=== PATIENT | male | born 1970 | race Hispanic/Latino ===

== ENCOUNTER 2016-11-12 17:23 | Inpatient (IN) | payer OTHER, MEDICAID ==
[~2016-11-12] VITALS: Ht 172.7 cm; Wt 91.8 kg
[~2016-11-12 17:23] MED LIST: CLIN300C4 PO; HYDR1TAB69 PO; LORA-303 PO; VIS25 PO
[2016-11-12 17:25] VITALS: BP 114/77; PULSE 99; RESP 20; O2SAT 99
[2016-11-12] MEDS ORDERED: 0.9% Sodium Chloride 1,000 ML IV ONE (18:04)
--- NOTE | 2016-11-12 18:04 | ED.REPORT ---
HPI-Extremity Problem Lower Date of Service Nov 12, 2016 ED Provider: Quin Erazo History of Present Illness: 46-year-old male here for right knee pain. States it has been hurting for months. States it has been gradually swelling and more painful for months. The erythema and drainage she noticed more recently although hard to pinpoint a time frame. If the PCP in [place] whom he saw recently but they did not look at his knee area has an infectious disease doctor in [place] as well. History of arthritis and has had his knee removed and has a spacer in his knee. As well as in his hips and shoulders. No known fever. No nausea vomiting or diarrhea. He is homeless and lives in his van. He is up here for [facility] usually gets his healthcare in the [facility]. He is nonweightbearing uses a wheelchair to get around. Nursing Notes Stated Complaint: SWOLLEN KNEE AND FOOT Chief Complaint: Extremity Trauma Nursing Notes Reviewed: Yes Allergies: Coded Allergies: codeine (Verified Allergy, Severe, GI UPSET, 11/12/16) Scheduled Clindamycin Hcl (Clindamycin Hcl) 300 Mg Capsule 300 MG PO QID Scheduled PRN Hydrocod/APAP-Expunged, Do Not Renew! (VICODIN 5/500-Expunged Drug, Do Not Renew ) 1 Each Tablet 1 EACH PO TID PRN PRN Lorazepam-Expunged Drug, Do Not Renew! (Lorazepam-Expunged Drug, Do Not Renew!) 1 Mg Tablet 1 MG PO TID PRN PRN hydrOXYzine Tessie-Expunged Drug, Do Not Renew! (Vistaril-Expunged Drug, Do Not Renew!) 25 Mg Capsule 25 MG PO Q6 PRN PRN General Time Seen by MD: 17:47 Chief Complaint Knee injury left Hx Obtained From: Patient, Other family... Arrived By: Wheelchair Onset Occurred: Onset unknown Symptom Duration: Constant Location: : Knee left Severity: Current: Severe Severity: Maximum: Severe Pertinent Negative: Pt denies other symptoms Exacerbated by: Range of motion, Movement Relieved by: Rest Similar Sx Previous: Yes Past Medical History Past Medical History Notes: Last admitted to [facility] in 2011 infected right hip, MSSA positive Patient reports currently followed by orthopedist Dr. Sandoval in [place], as well as an ID doc ("Dr. Caruso" at a hospital in [place], ? 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, (status post multiple joint replacements and surgeries) h/o MRSA septic joint 3h/o hepatitis C History of previous skin abscesses, no history of MRSA as of 2011 Vitiligo Past Surgical History Status post multiple joint replacements including bilateral knees, bilateral shoulders, bilateral hips: Patient is status post hardware removal to do an infection in June 2015 of The left knee joint, patient is also status post irrigation debridement of the right hip in 2011, status post right total hip arthroplasty with placement of an antibiotic impregnated cement spacer in 07/14/2015, and a right hip close reduction 07/22/2015 Smoking History Current Every Day Smoker Social History Homless (lives in Car) Alcohol Use: "Social" Drug Use: In recovery (Prior ho IVDA, patient claims sober x7 monts (as of 11/13)) Review of Systems Basic Review of Systems Eyes: Vision NL, No discharge ENT: Hearing NL, No pain, No nasal congestion, No pharyngeal pain Respiratory: No shortness of breath, No cough, No wheeze Cardiovascular: No chest pain, No dyspnea on exertion, No orthopnea, No parox noct dyspnea, No palpitations GI: No abdominal pain, No anorexia, No nausea, No vomiting Psychiatric: Normal thought content Constitutional: Denies: Chills, Fatigue, Fever Musculoskeletal: Reports: Extremity pain, Extremity swelling Skin: Reports Swelling (erythema) Complete sys rev & neg: except as marked. Physical Exam Physical Exam Notes: Initial Vital Signs Vital Signs (First) Date Time Temp Pulse Resp B/P Pulse Ox O2 Delivery O2 Flow Rate FiO2 11/12/16 17:25 36.2 99 20 114/77 99 Room Air Initial VS: Reviewed, Vital signs normal General/Constitutional: Well-developed, Well-nourished Head / Eyes: Atraumatic, Normocephalic, PERRL Neck: Supple, Non-tender, Full range of motion Respiratory: Breath sounds normal, Clear to auscultation, No respiratory distress Cardiovascular: Regular rate & rhythm, Heart sounds normal, Intact distal pulses Abdomen / GI: Soft, Non-tender, No guarding, No rebound, No distention Skin: Warm, Dry, No cyanosis Neurologic: Alert, Oriented, Nonfocal Psychiatric: Mood/affect normal, Behavior normal, Normal thought content hugely swollen, tender knee and RLE. pedal pulse present. Large area of ERythema concentrated medial aspect, superficial open area of weeping/drainage. LE is taut edema. RLE is moderately swollen as well. Interpretation & Diagnostics Lab Results Interpretation Result Diagram: 11/12/16202911/12/162029 Lab Results Interpretation: CBC normal CMP normal CRP elevated Sedimentation rate elevated Blood culture 1 pending, attempts at second blood cultures were unsuccessful at drawing Arthrocentesis attempted by orthopedics and unsuccessful, no fluid available for analysis X-Ray Chest Interpretation Chest Xray Interpretation: IMPRESSION: Right upper lobe pneumonia. Dictated by: Pushpa James M.D. on 11/12/2016 at 18:25 Approved by: Pushpa James M.D. on 11/12/2016 at 18:26 View: Portable Interpretation / Wet Read by: Interpret - Radiologist X-Ray Interpretation Xray Interpretation: IMPRESSION: 1. Posterior lateral dislocation of tibia at the tibiotalar joint. 2. Loosening of the femoral and tibial components of the knee prosthesis. 3. Patellar dislocation. 4. Marked soft tissue swelling and small effusion. Dictated by: Pushpa James M.D. on 11/12/2016 at 19:09 Approved by: Pushpa James M.D. on 11/12/2016 at 19:14 X-Ray Ordered: Knee left Interpretation / Wet Read by: Interpret - Radiologist Re-Eval/Medical Decision Med Decision/Clinical Course 1814 Dr Vilchis made aware of pt. at bedside for eval Addendum by Dr. Vilchis: This is a patient initially seen by the mid-level provider, but I personally interviewed and examined the patient. I reviewed the radiographs, laboratory studies, had multiple conversations with the variety of consultants. Briefly it is a 46-year-old male with a very complex history including multiple joint replacements and a history of IV drug abuse that is led to several infections of a variety joints. She has had a previous methicillin sensitive staph aureus and joint infection here at [facility] several years ago, but apparently he has had MRSA at outside facilities. His current orthopedic and infectious disease care or through the [facility] for orthopedics and [facility] for infectious disease. He presents tonight with increasing pain, swelling, redness and a sense of chills and fevers subjectively over the past couple of days. The patient is a very challenging, contradictory, and overall poor historian. In particular kneeling down his timelines is extremely challenging Kocis had such chronic problems, and sorting out when more acute problems began as difficult to say the least. Essentially the patient developed a MRSA infection of the left knee , his hardware had to be removed and a spacer was placed in June 2015, and ever since he has had continuous pain and swelling. He has been nonambulatory. Apparently has been on a variety of antibiotics, and reports finishing some sort of unknown antibiotic about 6-8 weeks ago. He presents today to [facility] when his car broke down, he is having increasing pain in his knee. His family came and saw notices knee is much more swollen than usual, although is very swollen, he is having unbelievable pain with any movement of the knee which is unusual, normally he moves himself around, and although he has mild pain is not as extreme, and the left knee is now hot and red and much more swollen as well. Getting the timeline of when the redness, swelling and pain has been challenging-it sounds like it has been the past few days, the patient keeps talking about how much of it is been there for months. This is despite the fact that everyone agrees, patient, family at bedside there has been some sort of acute change in recent days. Additionally he describes subjective fevers, chills and rigors. Patient claims he has not been using for the past several months, and is on oral oxycodone and Klonopin. Over, Genna appears slightly intoxicated on initial arrival. He has healed track perdomo, but no clear fresh ones are immediately evident. I do not appreciate a heart murmur on his exam. He has incredibly swollen knee, and severe pain with any movement. Redness and cellulitis and even weeping of some clear fluid over the knee, with a cellulitis mostly on the medial aspect of the knee. Distal pulses, the patient is not able to a baseline, but again any movement is disproportionally painful. Plain radiographs demonstrate a complete dislocation, but both the patient and the family same that has been the case for a number of months. Was also challenging to prior history of drug use, but given the high suspicion for septic joint ultimately a PICC line was placed. Multiple attempts to draw blood cultures were unsuccessful, a single blood cultures be drawn from the PICC line. Blood work is noted an elevated sedimentation rate and CRP. The complexity of this case, the concern for cellulitis and septic joint with a dislocation-orthopedics was consulted and came and saw the patient. Please see their note. Orthopedist attempted arthrocentesis in the department but did not get much fluid. Records were also requested from outside facilities, and the patient has had a prior similar presentation in December 2015 which is apparently was MRSA. The orthopedist's concern that the patient may require more than a simple joint wash out, and requests potential transfer to specialist in [place]. I contacted the transfer center, no beds are available [facility], they would like for the patient to go to the orthopedic specialty care facility at [place]-but have no beds tonight. So they have requested the patient be admitted tonight tonight, and we can call back in the coming days for placement. In the meantime the patient is being maintained nothing by mouth after midnight, with the orthopedist considering washout in the OR in the morning. The patient in the meantime is being empirically covered with Zosyn plus vancomycin. Case is discussed with hospitalist. The patient's admitted in stable condition. Source of Hx: Old records Consultation #1: Referral / Consult Name: Real Barker DO Consulted With: Orthopedic Note: Case discussed. Will come see patient Consultation #2: Referral / Consult Name: Krunal Hillman MD Consulted With: Hospitalist Logistics Project Manager: Accepts admit Note: Case discussed Consultation #3: Referral / Consult Name: Real Barker DO Call Returned at: 20:00 Note: Dr. Barker has evaluated the patient. Requests transfer of the patient to the . If unable to transfer, will care for the patient at [facility]. Consultation #4: Call Returned at: 21:05 Note: Spoke with the [facility], have identified the patient's record. Will contact their orthopedic service for possible transfer of the patient to one of their facilities. There may not be any beds available. Consultation #5: Call Returned at: 21:16 Note: No beds available at the [facility] facilities. Consultation #6: Call Returned at: 21:25 Note: Dr. Hillman notified that the patient will be admitted to [facility]. Counseled Regarding: Diagnosis, Lab results, Need for admission Discharge & Departure Impression: Primary Impression: Septic joint of left knee joint Septic arthritis organism: due to unspecified organism Qualified Code: M00.9 - Pyogenic arthritis, unspecified Additional Impressions: Knee joint dislocation Encounter type: subsequent encounter Laterality: left Qualified Code: S83.105D - Unspecified dislocation of left knee, subsequent encounter Drug abuse Cellulitis Site of cellulitis: extremity Site of cellulitis of extremity: lower extremity Laterality: left Qualified Code: L03.116 - Cellulitis of left lower limb Disposition: ADMITTED TO HOSPITAL Discharge Condition All VS Reviewed: Yes Condition: Stable Referrals: Maddie Mancuso (PCP) Scribe Attestation Portions of this note were transcribed by Rosario Eddy. I, Dr. Vilchis personally performed the history, physical exam and medical decision-making; I reviewed and confirmed the accuracy of the information in the transcribed note. Signed by: Nasir Guallpa, 11/12/2016 9067 Attending Statement This patient was initially seen by the Mid Level Provider. But I personnally interviewed and examined the patient, reviewed the radiographs, and discussed the case with the orthopedist and hospitalist. copies to: Maddie Mancuso Linnea K ARNP Nov 12, 2016 18:04 Drew Vilchis MD Nov 12, 2016 19:25 Rosario Eddy Nov 12, 2016 21:10
--- NOTE | 2016-11-12 18:27 | DRSVH ---
PROCEDURE: X-RAY CHEST ONE VIEW, PORTABLE ([id number]) INDICATIONS: infection TECHNIQUE: One view of the chest was acquired. COMPARISON: [facility], , CHEST 1VW (PORTABLE), 06/09/2012, 23:40. FINDINGS: Surgical changes and devices: Bilateral shoulder arthroplasties. Lungs and pleura: Right upper lobe infiltrates consistent with pneumonia. There is left basilar atel ectasis. No pleural effusions or pneumothorax. Mediastinum: Mediastinal contours appear normal. Heart size is normal. Bones and chest wall: No suspicious bony lesions. Overlying soft tissues appear unremarkable. IMPRESSION: Right upper lobe pneumonia. Dictated by: Pushpa James M.D. on 11/12/2016 at 18:25 Approved by: Pushpa James M.D. on 11/12/2016 at 18:26
[2016-11-12] MEDS ORDERED: Sodium Chloride LOK Flush 10 mL Syringe IVFLUSH PRN ×2 (19:10)
--- NOTE | 2016-11-12 19:16 | DRSVH ---
PROCEDURE: X-RAY LEFT KNEE, ONE OR TWO VIEWS ([id number]) INDICATIONS: swelling, pain TECHNIQUE: 3 views of the knee were acquired. COMPARISON: None. FINDINGS: Bones: There is left knee arthroplasty prosthesis. There is posterior lateral dislocation of the tib ia at the tibiotalar joint. Patellar is introduced located. The femoral component of knee prosthesis is loosened with displaced anteriorly and medially. There is also loosening of the tibial compartment with lucency between the prosthesis and bone interface. There is generalized osteopenia. Soft tissues: Normal joint effusion. No suspicious soft tissue calcifications. There is soft tissue swelling. IMPRESSION: 1. Posterior lateral dislocation of tibia at the tibiotalar joint. 2. Loosening of the femoral and tibial components of the knee prosthesis. 3. Patellar dislocation. 4. Marked soft tissue swelling and small effusion. Dictated by: Pushpa aJmes M.D. on 11/12/2016 at 19:09 Approved by: Pushpa James M.D. on 11/12/2016 at 19:14
[2016-11-12] MEDS ORDERED: 0.9% Sodium Chloride 1,000 ML IV SCH (19:43)
[2016-11-12] MEDS ORDERED: Alum-Mag Hydrox-Simeth 30 mL Suspension PO PRN (19:45)
[2016-11-12] MEDS ORDERED: Ondansetron 2 mg/mL 2 mL Inj IVPUSH PRN (19:45)
[2016-11-12] MEDS ORDERED: Polyethylene Glycol (PEG) 17 Gm Powder PO PRN (19:45)
--- NOTE | 2016-11-12 19:55 | PCM.HPMED ---
Subjective Date of Service Nov 12, 2016 Primary Provider: Admitting Physician: Primary Care Physician: Maddie Mancuso Attending Physician: Admit Status: From the Emergency Department Chief Complaint: Left knee pain, fevers, chills History of Present Illness: Mr. 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 He was admitted for suspected septic joint of his left knee with associated significant swelling and effusion, in addition to reported subjective fever and chills. Hospital day one. Mr. Hanna states a complex history of multiple joint replacements of bilateral shoulders, hips, and knees due to his condition of spondyloepiphyseal dysplasia, with most recent removal of hardware of left knee and right hip secondary to complications in 2014, secondary to infection as stated by the patient. He states that he is followed by Infectious Disease department, orthopaedics in [place], and his PCP is through [facility] in [place]. He shares that his left knee has progressively become more swollen and painful over recent days to weeks, but notes that he has had ongoing difficulties for the recent 1.5 years since the removal of his hardware and spacer placement, which he states was completed at [facility] in [place]. He adamantly insists that he not return to [place] for continued orthopaedic care. He lives out of his van, smokes approx 0.5ppd, and denies daily or chronic alcohol use. Admits to IVDU, last use reported as two months prior to this admission. He also reports history of incarceration in [id number]. During the initial interview, he was notably uncomfortable, and distracted by his high level of pain, and despite his pain, he was quite cooperative. He denies any other medical conditions other than his ongoing joint issues secondary to dysplasia, and vitiligo. Denies any history of cardiac, pulmonary, or GI complications. He admits to ongoing and increasingly worsening left knee pain and swelling, diffuse muscle spasms, subjective fever, and chills. Denies any nausea, vomiting , decreased appetite. Reports he is wheelchair bound at baseline secondary to the spacers that remain in his left knee and right hip, but reports that he is usually able to transition well without assistance and without significant, limiting pain. He was seen at [facility] in 2011 for MSSA bacteremia right hip pain and infection secondary to IVDU injection into the right hip, and was noted to have a history of MRSA and previous skin abscesses. He shares that his most recent severe infection was in late 2014, but reports a recent use of outpatient antibiotics that he completed a few months ago, but he is unable to recall the details of the name or class of medication. In the ED, vitals included T36.2, P99, BP 114/77, with 99% RA; initial labs revealed WBC 7.3, Hb 10.7, ESR 52, CRP 7.2, LA 1.0; blood cultures obtained x1 set, as second set was unable to be obtained. CXR suspicious for RUL PNA; Left knee XR revealed left knee arthroplasty prosthesis with posterior lateral dislocation of tibiotalar joint, femoral component of prosthesis loosened and displaced anteriorly and medially, and loosening of tibial compartment with lucency between prosthesis and bone interface, with marked soft tissue swelling and small effusion. The ED emergently contact ortho, and ortho attempted to aspirate fluid without success. Initial therapy included zosyn and vanco. Review of Systems: Complete ROS obtained; pertinent positives and negatives as noted in HPI Allergies Coded Allergies: codeine (Verified Allergy, Severe, GI UPSET, 11/12/16) Home Medications From ED note: Scheduled Clindamycin Hcl (Clindamycin Hcl) 300 Mg Capsule 300 MG PO QID Scheduled PRN Hydrocod/APAP-Expunged, Do Not Renew! (VICODIN 5/500-Expunged Drug, Do Not Renew ) 1 Each Tablet 1 EACH PO TID PRN PRN Lorazepam-Expunged Drug, Do Not Renew! (Lorazepam-Expunged Drug, Do Not Renew!) 1 Mg Tablet 1 MG PO TID PRN PRN hydrOXYzine Tessie-Expunged Drug, Do Not Renew! (Vistaril-Expunged Drug, Do Not Renew!) 25 Mg Capsule 25 MG PO Q6 PRN PRN Patient reports no current antibiotic; states he takes anti-anxiety medication and pain medication daily; reports percocet 5-325 QID PMH Multiple joints requiring replacements secondary to reported spondyloepiphyseal dysplasia History of IVDU History of multiple abscesses requiring I&D secondary to IVDU History of septic joints and resultant bacteremia secondary to IVDU HCV Vitiligo Patient reports history of incarceration [id number] Surgical History Bilateral shoulder replacements Bilateral hip replacements Bilateral knee replacements Note: reported that left knee and right hip have spacers placed in 2014 secondary to hardware removal due to infection Family History Reports: Similar condition, spondyloepiphyseal dysplasia; denies cardiac, pulmonary, GI issues Social History Hx Alcohol Use: No Hx Substance Use: Yes (Heroin, poor historian, reports last used 2 months prior to this admission) Hx Tobacco Use: Yes (1/2 ppd) Living Arrangement: Alone (Homeless, lives in van) Exam Vital Signs Vital Sign - Last Date Time Temp Pulse Resp B/P Pulse Ox O2 Delivery O2 Flow Rate FiO2 11/12/16 17:25 36.2 99 20 114/77 99 Room Air Exam General: AAOx3; moderate distress secondary to pain with movement HEENT: Atraumatic; frontal bossing with deep set eyes; sclera anicteric, external ears without defect; mucus membranes moist; amblyopia noted during examination Neck: Soft, no palpable lymph nodes; full ROM without pain Cardiac: RRR, no appreciated murmurs Respiratory: Adequate air flow all [place], no coarse sounds appreciated Abdomen: Soft, nontender, nondistended Extremities: Left knee notably swollen and tender with diffuse erythema extending from tibial plateau to femoral condyles without discharge but with skin breakdown and superficial peeling over mid-aspect of knee MSK: Unable to ambulate and transfer without assistance; 5/5 strength at BL ankles Neuro: CNII-XII grossly intact; facial expressions equal and symmetric Psych: Appropriate mood, affect, and responses to questioning Assessment & Plan Mr. 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 He was admitted for suspected septic joint of his left knee with associated significant swelling and effusion, in addition to reported subjective fever and chills. Hospital day one. Suspected septic joint of left knee, acute, present on admission. Ongoing - Patient reports increasing swelling and pain; significant h/o similar with bacteremia and septic joints with hardware removal and spacer placement - DDx: Septic joint due to infection of spacer, gout, cellulitis, synovitis, ligamentous/tendinous injury of remaining anatomy - Uric acid level; unlikely, but possible - CRP trend - Blood cultures - ABx: Vanco + ceftriaxone - MRSA swab - ASO titer - Tele to monitor risk of sepsis - Ortho kindly consulted; will follow; Dr. Barker saw pt in ED prior to admission - NPO midnight for washout in am with ortho - LIKELY/HOPEFUL TRANSFER TO / ORTHO; FOLLOW UP IN AM with bed availability - Pain: Dilaudid 1mg IV q4h prn pain - Records request from ID team, Dr. Lai, and [facility] ortho, Dr. Tristan, placed to in case transfer is delayed Anxiety, chronic. Presumed stable - Ativan 1mg IV q4h prn anxiety History of incarceration. Presumed stable - HIV testing in am - QFT testing in am History of HCV. Unknown status - Per chart review - HCV quant + genotype Tobacco use disorder, chronic. Stable - Pt reports approx 8 cigarettes daily - 14mg nicotine patch prn - PRN: bowel/fever/antiemetic/pain/anxiety - Diet: NPO - GI: H2B - DVT: Hep q8 SQ - Code: FULL CODE Patient Status: Due to presenting symptoms, likely course of care, and risk of adverse events, anticipated LOS > 2 midnights; admitted as INPT Pain Evaluation: Adequate Pain Control GI Prophylaxis: H2 erasmo VTE Prophylaxis: Sub-Q Heparin (Unfractionated) Resuscitation Status: CPR: Attempt Resuscitation Attending Statement The patient was seen and examined together with Dr. Thompson on 11/12 and I agree with the history, exam and plan as outlined in the note above. Merry Thompson DO Nov 12, 2016 19:55 Krunal Hillman MD Nov 13, 2016 01:00
[2016-11-12] MEDS ORDERED: Ketorolac 15 mg/mL Inj IVPUSH ONE (20:30)
[2016-11-12] MEDS ORDERED: Ondansetron 2 mg/mL 2 mL Inj IVPUSH ONE (20:30)
[2016-11-12] MEDS: HYDROmorphone 1 mg/mL Inj IVPUSH PRN ×2 (20:45→21:16)
[2016-11-12 20:49] LABS: MONOCYTES % (AUTO) 10.6 % (4-12)
[2016-11-12 20:51] VITALS: BP 116/82; PULSE 91; RESP 20; O2SAT 99
[2016-11-12 20:56] LABS: BASOPHILS % (AUTO) 0.5 % (0-3); EOSINOPHILS % (AUTO) 4.5 % (0-5); Mean Corpuscular Hemoglobin 26.5 pg (27.0-35.0); Mean Corpuscular Volume 83.7 fL (81-100); NEUTROPHILS % (AUTO) 51.8 % (40-74); Platelet Count 429 bil/L (150-400)
--- NOTE | 2016-11-12 21:08 | DRSVH ---
PROCEDURE: X-RAY PICC LINE PLACEMENT BY NURSE ([id number]) INDICATIONS: access, septic joint COMPARISON: None. FINDINGS: PICC was placed by the intravenous therapy team from the right side. Fluoroscopic spot fi lm demonstrates tip of PICC in the right atrium. IMPRESSION: Tip of PICC lies within the right atrium. Dictated by: Pushpa James M.D. on 11/12/2016 at 21:06 Approved by: Pushpa Jaems M.D. on 11/12/2016 at 21:06
[2016-11-12] MEDS ORDERED: Piperacillin-Tazo 3.375 Gm Inj 3.375 GM in Dextrose 5% Minibag Plus 50 ML IV ONE (21:25)
[2016-11-12] MEDS ORDERED: Vancomycin Dose per Pharmacist XX ONE (21:25)
[2016-11-12 21:38] LABS: ERYTHROCYTE SEDIMENTATION RATE 52 mm/hr (0-15)
[2016-11-12 21:40] VITALS: BP 107/71; PULSE 93; RESP 12; O2SAT 98
[2016-11-12] MEDS ORDERED: Vancomycin Inj 2,250 MG in 0.9% Sodium Chloride 500 ML IV ONE (21:40)
[2016-11-12 22:00] VITALS: BP 107/71; PULSE 93; RESP 12; O2SAT 98
[2016-11-12] MEDS ORDERED: HYDROmorphone 1 mg/mL Inj IVPUSH ONE (22:00)
[2016-11-12 22:26] VITALS: BP 112/69; PULSE 95; RESP 18; O2SAT 100
[2016-11-12 22:33] VITALS: PULSE 94
--- NOTE | 2016-11-12 22:50 | NUR ---
admit Pt was brought up from ED on stretcher with all belongings. Pt transferred from stretcher to bed with no incident. Pt occasionally confused, but mostly alert and oriented. Complained of knee pain, will continue to monitor, left room with call light at side.
[2016-11-13] MEDS: Heparin 5,000 Unit/mL Inj SUBQ SCH ×3 (01:06→17:56)
[2016-11-13] MEDS: HYDROmorphone 1 mg/mL Inj IVPUSH PRN ×4 (01:19→19:22)
[2016-11-13] MEDS: 0.9% Sodium Chloride 1,000 ML IV SCH ×3 (04:04→22:58)
[2016-11-13 05:34] VITALS: BP 98/62; PULSE 73; RESP 16; O2SAT 100
[2016-11-13 05:40] LABS: BASOPHILS % (AUTO) 0.2 % (0-3); EOSINOPHILS % (AUTO) 6.4 % (0-5); Mean Corpuscular Hemoglobin 26.7 pg (27.0-35.0); NEUTROPHILS % (AUTO) 50.8 % (40-74); Platelet Count 315 bil/L (150-400)
[2016-11-13 06:20] LABS: Magnesium 1.8 mg/dL (1.6-2.6); Phosphorus 4.4 mg/dL (2.5-4.9)
[2016-11-13] MEDS ORDERED: OXYC-466 PO (07:39)
[2016-11-13] MEDS ORDERED: HYDR-656 PO (07:40)
--- NOTE | 2016-11-13 07:42 | PCM.PNORTH ---
Subjective Date of Service: Nov 13, 2016 Visit Information: Reason for Visit Swollen Knee And Foot Surgery/Surgery Date Post-Op Day # Date of Admission: Nov 12, 2016 at 20:14 Hospital Day # Subjective Pt states his symptoms are unchanged. Continues to have knee pain. States that his knee size is actually smaller than it was 2 weeks ago. States today he is mainly hungry and wants to eat. Denies and fevers, sweats or chills. Objective Exam Objective Gen - alert, NAD Ext - Significant swelling to left knee Superficial excoriations to the anteromedial knee where pressure is placed from distal femur Lower extremity is perfused Swelling to lower leg, but compartments pliable and non tender to compression +DF/PF ankle and toes Vital Signs and I/O Vital Sign - Last Date Time Temp Pulse Resp B/P Pulse Ox O2 Delivery O2 Flow Rate FiO2 11/13/16 05:34 36.4 73 16 98/62 100 Room Air Intake and Output 11/12/16 11/12/16 11/13/16 Cumulative From/Thru 15:00 23:00 07:00 11/12/16 17:25 - 11/13/16 04:38 Intake Total 1000 ml 1000 ml Balance 1000 ml 1000 ml Intake IV Total 1000 ml 1000 ml Lab & Micro Results Laboratory Tests Test 11/12/16 20:30 11/13/16 05:20 White Blood Count 7.3th/mm3 (3.8-10.1) 4.3th/mm3 (3.8-10.1) Red Blood Count 4.04mil/mm3 (4.40-5.80) 3.26mil/mm3 (4.40-5.80) Hemoglobin 10.7g/dL (13.8-17.2) 8.7g/dL (13.8-17.2) Hematocrit 33.8% (41.0-50.0) 27.7% (41.0-50.0) Mean Corpuscular Volume 83.7fL (81-100) 85.0fL (81-100) Mean Corpuscular Hemoglobin 26.5pg (27.0-35.0) 26.7pg (27.0-35.0) Mean Corpuscular Hemoglobin Concent 31.7% (32.0-37.0) 31.4% (32.0-37.0) Red Cell Distribution Width 15.2% (12.3-15.4) 15.1% (12.3-15.4) Platelet Count 429bil/L (150-400) 315bil/L (150-400) Neutrophils (%) (Auto) 51.8% (40-74) 50.8% (40-74) Lymphocytes (%) (Auto) 32.3% (14-46) 30.4% (14-46) Monocytes (%) (Auto) 10.6% (4-12) 12.0% (4-12) Eosinophils (%) (Auto) 4.5% (0-5) 6.4% (0-5) Basophils (%) (Auto) 0.5% (0-3) 0.2% (0-3) Erythrocyte Sedimentation Rate 52mm/hr (0-15) Sodium Level 135mEq/L (134-144) 139mEq/L (134-144) Potassium Level 4.2mEq/L (3.5-5.2) 4.4mEq/L (3.5-5.2) Chloride Level 99mEq/L (97-108) 105mEq/L (97-108) Carbon Dioxide Level 23mmol/L (18-29) 23mmol/L (18-29) Blood Urea Nitrogen 12mg/dL (6-24) 10mg/dL (6-24) Creatinine 0.50mg/dL (0.76-1.27) 0.45mg/dL (0.76-1.27) Estimat Glomerular Filtration Rate 191mL/min (>59) 216mL/min (>59) Glucose Level 97mg/dL (60-99) 87mg/dL (60-99) Lactic Acid Level 1.0mmol/L (0.4-2.0) Calcium Level 8.9mg/dL (8.5-10.1) 7.4mg/dL (8.5-10.1) Magnesium Level 2.0mg/dL (1.6-2.6) 1.8mg/dL (1.6-2.6) Total Bilirubin 0.2mg/dL (0.0-1.2) Aspartate Amino Transf (AST/SGOT) 8U/L (0-50) Alanine Aminotransferase (ALT/SGPT) 7U/L (0-44) Alkaline Phosphatase 94U/L (25-150) C-Reactive Protein 7.2mg/dL (0.0-0.5) 5.0mg/dL (0.0-0.5) Total Protein 7.4g/dL (6.4-8.4) Albumin 2.7g/dL (3.4-5.0) Uric Acid 3.9mg/dL (2.6-7.2) Phosphorus Level 4.4mg/dL (2.5-4.9) Procalcitonin 0.14ng/mL (0.00-0.08) Microbiology 11/12/16 Blood Culture, Received Pending Result Diagram: 11/13/1651911/13/16519 Assessment & Plan Impression 1) Chronic left septic knee arthritis 2) Chronic left knee dislocation Problems: Plan Discussed cased with Dr Sanchez who will also pop in to see the patient this morning. He agrees that this patient should be transferred to as soon as possible due to the level of care required and for continuity of care Pt is not acutely septic as he is afebrile, vitals are stable and white count continues to be normal Septic arthritis is chronic and his CRP /ESR is improved compared to the labs taken from his [facility] visit in January Pt also states that the overall size of his knee is actually smaller then it has been in the past few weeks Dislocation is also chronic and unlikely to be held reduced with a simple reduction alone Recommend transfer [facility] stated to ER yesterday evening that thery are willing to accept to orthopedic hospital once bed is available VTE Prophylaxis: Sub-Q Heparin (Unfractionated) Resuscitation Status: CPR: Attempt Resuscitation Real Barker DO Nov 13, 2016 07:42
[2016-11-13] MEDS: Vancomycin Dose per Pharmacist XX SCH (08:30)
[2016-11-13] MEDS: cefTRIAXone Inj 2,000 MG in Dextrose 5% Minibag Plus 50 ML IV SCH (09:37)
[2016-11-13] MEDS: Vancomycin Inj 1,500 MG in 0.9% Sodium Chloride 500 ML IV SCH ×2 (10:12→18:37)
[2016-11-13 10:15] VITALS: PULSE 77
[2016-11-13 10:43] VITALS: BP 108/69; PULSE 89; RESP 18; O2SAT 93
[2016-11-13] MEDS: cloNIDine 0.1 mg Tablet PO SCH ×3 (11:01→22:58)
--- NOTE | 2016-11-13 11:42 | DRSVH ---
PROCEDURE: X-RAY CHEST ONE VIEW ([id number]) INDICATIONS: Catheter tip placement TECHNIQUE: One view of the chest was acquired. COMPARISON: [facility], CR, XR CHEST 1VW (PORTABLE), 11/12/2016, 18:01. [facility], [facility], XR PICC LINE PLACE BY NURSE, 11/12/2016, 18:58. FINDINGS: Surgical changes and devices: Right PICC has been slightly retracted tip now projected over the media l aspect of the lower SVC. Bilateral shoulder arthroplasties. Lungs and pleura: No pleural effusions or pneumothorax. Interstitium is prominent and there is prob able atelectasis involving the left lung base. No pneumothorax. Mediastinum: Mediastinal contours appear normal. Heart size is normal. Bones and chest wall: No suspicious bony lesions. Overlying soft tissues appear unremarkable. IMPRESSION: Slight retraction of right PICC. Dictated by: Cesar DANIEL Interpreted: Jonathan Mcdaniels MD on 11/13/2016 at 11:40 Transcribed by: KEAGAN on 11/13/2016 at 11:41 Approved by: Jonathan Mcdaniels M.D. on 11/13/2016 at 14:29
[2016-11-13] MEDS: oxyCODONE-Acetamin 5-325 mg Tablet PO PRN ×3 (13:42→22:57)
[2016-11-13 14:43] VITALS: BP 108/73; PULSE 71; RESP 17; O2SAT 93
--- NOTE | 2016-11-13 15:08 | NUR ---
Social Work-assessment: Data:EMR reviewed. Pt is a 46 y/o male who was admitted on 11/12/16 for swollen knee per H&P. Pt's insurance is [employer]/disabled. Pt's PCP is Dr. Herbert MD. EMR Reviewed. Pt's readmission is 6-high risk. SW met with pt at bedside to discuss discharge planning, SW role explained. Pt has been residing in his Van for the last 7 months in [place] where he remains independent with basic ADLs. Pt uses a w/c at baseline and does not drive. Pt has no HH or SNF history. Pt has no moth exterminator care or [facility] Benefits. SW discussed DPOA/ advanced directive, pt declining any information. SW discussed pt's drug use. Pt informed SW that he has not used in 2 months and does not have a problem. Pt states he stopped on his own the last time and he has also been to treatment. Pt has declined any resources for CD. Pt is all set up to transfer to when bed available. SW provided phone number and plan on white board in room. SW will continue to follow. Assessment:Pt who uses w/c at baseline. Plan:Pt to transfer to when bed available . SW will continue to follow. EVELIA Laguna
--- NOTE | 2016-11-13 17:54 | PCM.PNMED ---
Subjective Date of Service Nov 13, 2016 Subjective Patient was seen and examined at bedside today. Patient denies any chest pain, shortness of breath, nausea, vomiting, diarrhea. Patient complains of being hungry and left knee pain. All Overnight events: None Exam Vital Signs Vital Sign - Last Date Time Temp Pulse Resp B/P Pulse Ox O2 Delivery O2 Flow Rate FiO2 11/13/16 14:43 36.0 71 17 108/73 93 Room Air Intake and Output 11/12/16 11/12/16 11/13/16 Cumulative From/Thru 14:59 22:59 06:59 11/12/16 17:25 - 11/13/16 04:38 Intake Total 1000 ml 1000 ml Balance 1000 ml 1000 ml Intake IV Total 1000 ml 1000 ml Exam Physical Exam: GEN: Patient was awake, alert, responding appropriately to questions HEENT: Pupils equal round and reactive to light, extraocular eye muscles intact , Neck soft supple, trachea midline, nomocephalic/atraumatic CV: +S1/S2, regular rate and rhythm, no murmurs auscultated Respiratory: CTAB, no wheezes, rales, rhonchi GI: +bowel sounds x4, soft, compressible, nontender to palpation EXT: no clubbing, cyanosis, edema of the right lower extremity, left knee positive edema and erythema tenderness to palpation Skin: Positive for vitiligo throughout the body Neuro: Cranial nerves II-XII grossly intact Psych: mood and affect were appropriate IVs and Medications Medications Reviewed: Medications were reviewed in detail Lab and Diagnostics Result Diagram: 11/13/1651911/13/16519 Assessment & Plan Patient is a 46 year old gentleman (who is a poor historian) with 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 He was admitted for suspected septic joint of his left knee with associated significant swelling and effusion, in addition to reported subjective fever and chills. Hospital day one. Suspected septic joint of left knee, acute, present on admission. Ongoing - Blood cultures pending -Continue vancomycin and ceftriaxone - MRSA negative - Orthopedics following Dr. Barker - Pain: Dilaudid 1mg IV q4h prn pain - Records request from ID team, Dr. Lai, and [facility] Dr. Kun levine, placed to in case transfer is delayed Anxiety, chronic. Presumed stable - Ativan 1mg IV q4h prn anxiety Heroin abuse -Start clonidine 0.2 mg 4 times a day for potential opioid withdrawal -We will continue to monitor for rigors and myalgias and treat accordingly History of incarceration. Presumed stable - HIV results pending - QFT results pending History of HCV. Unknown status - Per chart review - HCV quant + genotype Tobacco use disorder, chronic. Stable - Pt reports approx 8 cigarettes daily - 14mg nicotine patch prn - PRN: bowel/fever/antiemetic/pain/anxiety - Diet: General - DVT: Hep q8 SQ - Code: FULL CODE Disposition: Yesterday, was placed to [facility] for possible placement of this patient as he is a complicated patient and has previously been seen at and is currently followed by infectious disease at the [facility]. While the patient was in the emergency room the transfer center stated that they did not have any beds at the [facility] and that once a bed was available the patient could be transferred however at this morning this was recanted. Orthopedics Dr. Barker was consulted who put a call out to Dr. Godinez who has seen the patient previously and stated that he would accept the patient in the transfer was then started again. Later in the day and another call was made from the transfer center stating that they recanted the transfer again. Further phone calls were made and the patient's transfer is still pending hopefully he will be able to be transferred later today. This patient is very complicated as he has recently had hardware removed from his knee and currently has an antibiotic spacer in place. At this time the patient's transfer is still pending and hopefully will be transferred later today for further care. GI Prophylaxis: H2 erasmo VTE Prophylaxis: Sub-Q Heparin (Unfractionated) Resuscitation Status: CPR: Attempt Resuscitation Chiqui Levy DO Nov 13, 2016 17:54
[2016-11-13] MEDS: hydrOXYzine Pamoate 25 mg Capsule PO PRN (18:40)
--- NOTE | 2016-11-13 19:27 | NUR ---
pain, abx, left knee pt. c/o 03/08 left knee pain today; prn percocet given with mod relief; pt. able to sleep intermittently after medication given. Repositioned pt. and assisted with partial sponge bath; pt. c/o increased pain, moaning at rest; prn dilaudid given with mod relief; pt. able to drift off to sleep intermittently. Scheduled abx given per md orders. Left knee dressing changed; covered with abd and tape; swollen, red, painful, min amt fishman drainage.
[2016-11-13 20:00] VITALS: PULSE 70
[2016-11-13 20:21] VITALS: BP 93/52; PULSE 70; RESP 18; O2SAT 95
--- NOTE | 2016-11-13 22:14 | CONS ---
[address] [address] CONSULTATION REPORT PATIENT: SIOBHAN PETERSEN : 1970 MR#: [id number] ADMIT: 11/12/2016 JOB ID: [id number] DATE OF SERVICE: CHIEF COMPLAINT: Left knee pain. HISTORY OF PRESENT ILLNESS: This is a 46-year-old male with a complex history for arthroplasties to multiple extremities. He presents today as his car broke down in [place] [facility] and his family brought him to the hospital. He has been having increasing left knee pain and swelling over the last several weeks. He originally underwent a knee replacement several years ago up in [place] by Dr. Boudreaux. His last surgery with Dr. Boudreaux was in June 2015 where he underwent removal of the prosthesis with application of antibiotic spacers. He had a recurrent bout of pain and swelling to the knee back in January and presented to [facility], where he has been seen and followed. He has seen an infectious disease doctor down at the [facility], as well as per the patient, as well as his sister who is present and helping with the history, they did see a physician named Dr. Godinez, who was possibly going to proceed with revision of the left knee. He states that his knee has always been swollen since after the explant surgery. He states that seven weeks ago was when it started to really swell up a lot, how it is currently. He thinks that the overall size of this knee has actually decreased over the last two weeks. He has been nonambulatory and been living in his van. He does have an extensive IV drug history. He has multiple joint replacements, including his bilateral shoulders, hips and knees, with explantation of the left knee, as well as the right hip. The patient currently is afebrile. He has some mild complaints of chills, but otherwise denies any further constitutional symptoms including any nausea or vomiting. He denies any issues with appetite or bowel and bladder function. He states he is able to feel everything in his lower extremity and despite the amount of swelling even to his lower leg and foot he states that this is pretty much normal for the last several months. PAST MEDICAL HISTORY: Spondyloepiphyseal dysplasia, IV drug utilization, hepatitis C, history of multiple septic arthritis and bacteremia. PAST SURGICAL HISTORY: Bilateral shoulder replacements, bilateral hip replacement with explantation and current spacer to the right hip, and bilateral knee replacement with explantation and removal of prosthesis with application of spacer to the left knee. FAMILY HISTORY: Noncontributory. SOCIAL HISTORY: The patient denies tobacco utilization. He has a history of heroin IV drug use with the last use two months prior to admission. He smokes half a pack of cigarettes a day. He is currently living in his van. MEDICATIONS: Clindamycin. ALLERGIES: CODEINE. REVIEW OF SYSTEMS: The patient denies any current fevers. He has had some chills. Denies any chest pain, shortness of breath, nausea, vomiting, diarrhea. Complains mainly of left knee pain and swelling as described in history of present illness. PHYSICAL EXAMINATION: General: The patient is alert and oriented. No apparent distress. HEENT: Normocephalic, atraumatic. Extraocular movements intact. Nares patent. Lungs: No audible wheezes. No overt signs of respiratory stress distress. Neuro: Cranial nerves 2-12 are intact. Extremities: On gross observation of the patient's left knee there is significant swelling to the knee which is stated to be persistent for the last several weeks and relatively unchanged. In fact, improving. There is diffuse swelling also to left lower extremity, but the compartments are pliable and there is no tenderness or pain elicited with compression of the compartments of the lower leg. There are faintly palpable dorsalis pedis and posterior tib pulses. He is able to dorsiflex and plantar flex the ankle and toes. The foot is well perfused. There is diffuse tenderness to palpation throughout the knee. DIAGNOSTIC STUDIES: A white count was obtained and is normal at 7.3. ESR is elevated at 52 and CRP at 7.2. Previous notes demonstrate his last hospitalization in January at the [facility] demonstrated a normal white count of 6.9, an elevated ESR of 64, and elevated CRP of 96.1. Three views of the left knee were obtained demonstrating a posterolateral knee dislocation with tibia and femur antibiotic spacers with loosening of the femoral component which appears chronic due to comparison with notes obtained from [facility], but also with the bony formation just proximal to the loose and extended femoral spacer. IMPRESSION: 1. Left chronic septic knee arthritis. 2. Left chronic knee dislocation. PLAN: I discussed with emergency department physician, who did contact the [facility]. Due to the complex nature of the patient's case, as well as to him already having care down at the [facility], it is my recommendation that the patient be transferred down. The emergency department physician did contact the [facility] and they do not have any beds at this time, but states that when a bed opens up that the patient can be transferred down to the orthopedic hospital. I did attempt an aspiration but was unsuccessful. This was performed with aseptic technique through an anterior lateral portal with an 18-gauge needle after local anesthetic was applied to the skin. The patient currently is afebrile and nonseptic with a chronic septic arthritis, as well as a chronic knee dislocation. He is also neurovascularly intact. I do not see any emergent surgery that will be necessary here at the hospital and feel that he should be transferred down for appropriate care at the [facility] as soon as possible. This has been reviewed with my joint partner, Dr. Garett Garcia, who agrees with the plan. SABINE
--- NOTE | 2016-11-13 23:10 | CONS ---
[address] [address] CONSULTATION REPORT PATIENT: SIOBHAN PETERSEN : 1970 MR#: [id number] ADMIT: 11/12/2016 JOB ID: [id number] DATE OF SERVICE: HISTORY OF PRESENT ILLNESS: I was asked to see the patient by Dr. Barker for evaluation of his left knee. Gentleman has had a long history of difficulties with the knee culminating in an excisional arthroplasty performed two years ago in [place] by Dr. Tristan. The implant was removed and an antibiotic impregnated articulating methylmethacrylate spacer was placed. He is now two years following that procedure, which should have ideally been revised to 6-8 weeks with the same explant antibiotic spacer in place. He states that approximately seven months ago things changed and his knee became acutely far more deformed. He describes the current situation of his knee with an obvious posterior dislocation on clinical exam. The patient reports that this current anatomy has been present for seven months with no recent change. In fact, he reports that he is much better than he was just 3-4 weeks ago when his knee was more swollen. PHYSICAL EXAMINATION: On examination, he is not draining from any particular site. He has mild erythema over the anterior aspect of the knee. It is difficult to tell whether this might be related to a septic process or whether or not this is just inflammation from the posterior dislocation of the knee and the malposition of the femoral articulated spacer. He states his knee has improved from 3-4 weeks ago. He has not been on antibiotics in that interim period of time. An aspirate was performed yesterday and culture results from this are currently pending. On clinical examination, he is grossly neurovascularly intact. He has a clear rotational deformity of the lower extremity. His knee is held in approximately 15 degrees of flexion. On palpation, the patella appears to be dislocated laterally and the femur is dislocated anteriorly on the tibia. The edge of the methylmethacrylate femoral component can be palpated beneath his skin, however, skin is intact over this. IMPRESSION: This gentleman has a very complex situation. He has a posteriorly dislocated knee which has been dislocated by history for seven months, and clinical examination suggests this is the case. A simple reduction of the knee would be highly unlikely to be successful. Radiographs demonstrate that the femoral component has failed and is sitting in a displaced and extended position. At this point in time, he will need removal of the articulated spacer, as well as consideration of a reconstruction using a complex, likely fully constrained component. He will require a level of management not provided at our institution and we will be making arrangements for transfer to Dr. Godinez at the [facility] for transfer of this highly complex patient.
[2016-11-14] VITALS (8 sets, daily range): BP systolic 84–111; BP diastolic 41–58; PULSE 54–80; RESP 18–20; O2SAT 92–97
[2016-11-14] MEDS: HYDROmorphone 1 mg/mL Inj IVPUSH PRN ×5 (00:06→23:23)
[2016-11-14] MEDS: Heparin 5,000 Unit/mL Inj SUBQ SCH ×4 (02:10→23:32)
[2016-11-14] MEDS: Vancomycin Inj 1,500 MG in 0.9% Sodium Chloride 500 ML IV SCH ×2 (03:05→10:30)
[2016-11-14] MEDS: oxyCODONE-Acetamin 5-325 mg Tablet PO PRN ×5 (05:28→21:00)
[2016-11-14 05:51] LABS: Mean Corpuscular Hemoglobin 26.3 pg (27.0-35.0); Mean Corpuscular Volume 86.2 fL (81-100)
--- NOTE | 2016-11-14 06:11 | NUR ---
Pain Patient pain managed successfully through out night, however BP and pulse began to drop. Patient was in and out of consciousness, falling asleep while eating, and while talking. Pain meds delayed until patients BP raised and increased alert. Patient now moaning, and difficult to sooth. Administered pain medications will continue to monitor BP.
[2016-11-14] MEDS: cloNIDine 0.1 mg Tablet PO SCH ×2 (06:30→13:25)
[2016-11-14] MEDS ORDERED: 0.9% Sodium Chloride 1,000 ML IV ONE ×2 (07:30→15:05)
--- NOTE | 2016-11-14 08:02 | PCM.PNORTH ---
Subjective Date of Service: Nov 14, 2016 Visit Information: Reason for Visit Swollen Knee And Foot Surgery/Surgery Date Post-Op Day # Date of Admission: Nov 12, 2016 at 20:14 Hospital Day # Subjective Pt continues to have pain to the left knee. States that it is mainly spasming and does this quite frequently. Otherwise has been comfortable with pain med. Denies any constitutional symptoms including and fevers, sweats or chills Objective Exam Objective Gen - alert, NAD Ext - No change in deformity or swelling to left knee Skin remains intact over dislocated distal femur Foot remains neurovascularly unchanged and intact Pt has compressible lower extremity compartments and denies pain with compression +DF/PF ankle and toes Vital Signs and I/O Vital Sign - Last Date Time Temp Pulse Resp B/P Pulse Ox O2 Delivery O2 Flow Rate FiO2 11/14/16 05:28 94/50 11/14/16 04:45 36.8 57 18 92 Room Air Intake and Output 11/13/16 11/13/16 11/14/16 Cumulative From/Thru 14:59 22:59 06:59 11/12/16 17:25 - 11/14/16 06:42 Intake Total 5448 ml 6448 ml Output Total 0 ml 0 ml Balance 5448 ml 6448 ml Intake Oral 553 ml 553 ml IV Total 4895 ml 5895 ml Output Urine Total 0 ml 0 ml Lab & Micro Results Laboratory Tests Test 11/14/16 05:39 White Blood Count 4.9th/mm3 (3.8-10.1) Red Blood Count 3.04mil/mm3 (4.40-5.80) Hemoglobin 8.0g/dL (13.8-17.2) Hematocrit 26.2% (41.0-50.0) Mean Corpuscular Volume 86.2fL (81-100) Mean Corpuscular Hemoglobin 26.3pg (27.0-35.0) Mean Corpuscular Hemoglobin Concent 30.5% (32.0-37.0) Red Cell Distribution Width 15.2% (12.3-15.4) Platelet Count 269bil/L (150-400) Sodium Level 142mEq/L (134-144) Potassium Level 3.8mEq/L (3.5-5.2) Chloride Level 111mEq/L (97-108) Carbon Dioxide Level 21mmol/L (18-29) Blood Urea Nitrogen 6mg/dL (6-24) Creatinine 0.53mg/dL (0.76-1.27) Estimat Glomerular Filtration Rate 179mL/min (>59) Glucose Level 112mg/dL (60-99) Calcium Level 7.4mg/dL (8.5-10.1) Total Bilirubin 0.2mg/dL (0.0-1.2) Aspartate Amino Transf (AST/SGOT) 8U/L (0-50) Alanine Aminotransferase (ALT/SGPT) 6U/L (0-44) Alkaline Phosphatase 81U/L (25-150) Total Protein 5.4g/dL (6.4-8.4) Albumin 2.4g/dL (3.4-5.0) Procalcitonin 0.11ng/mL (0.00-0.08) Microbiology 11/12/16 Blood Culture - Preliminary, Resulted NO GROWTH AFTER 24 HOURS 11/13/16 MRSA (PCR) - Final, Complete Result Diagram: 11/14/16 0539 11/14/16 0539 Assessment & Plan Impression 1) Chronic left septic knee arthritis 2) Chronic left knee dislocation Problems: Plan Pt remains nonseptic, comfortable and at baseline. Leg remains neurovascularly intact. Still agree that the patient needs to be transferred to a higher care facility JESSIE, will work to facilitate transfer again today. Per patient and paperwork from [facility] he has been seen at to establish care for definitive treatment for the knee back in January Continue with frequent neurovascular checks and pain control VTE Prophylaxis: Sub-Q Heparin (Unfractionated) Resuscitation Status: CPR: Attempt Resuscitation Real Barker DO Nov 14, 2016 08:02
[2016-11-14] MEDS: Vancomycin Dose per Pharmacist XX SCH (08:30)
[2016-11-14] MEDS: cefTRIAXone Inj 2,000 MG in Dextrose 5% Minibag Plus 50 ML IV SCH (09:35)
[2016-11-14] MEDS ORDERED: Vancomycin Serum Trough XX ONE (10:00)
[2016-11-14] MEDS: 0.9% Sodium Chloride 1,000 ML IV SCH ×2 (12:00→23:23)
[2016-11-14] MEDS: hydrOXYzine Pamoate 25 mg Capsule PO PRN ×3 (13:25→23:22)
--- NOTE | 2016-11-14 14:54 | PCM.PHAPRO ---
Progress Date of Service: Nov 14, 2016 Left knee pain, fevers, chills VANCOMYCIN DOSING PER PHARMACY A/ VANCOMYCIN TROUGH =24.8 DRAWN 11/14 1130 GOAL 15-20 P/ WILL HOLD 1030 DOSE AND DECREASE VANCOMYCIN TO 1000MG IV Q8H STARTING 1700 NEXT TROUGH 11-15 1630 Billy Guajardo [facility] Nov 14, 2016 14:54
--- NOTE | 2016-11-14 15:14 | PCM.PNMED ---
Subjective Date of Service Nov 14, 2016 Subjective Patient was seen and examined at bedside today. The patient is complaining of significant left knee pain with extreme pain on movement. Exam Vital Signs Vital Sign - Last Date Time Temp Pulse Resp B/P Pulse Ox O2 Delivery O2 Flow Rate FiO2 11/14/16 15:01 35.9 80 95/55 96 11/14/16 10:51 20 Room Air Intake and Output 11/13/16 11/13/16 11/14/16 Cumulative From/Thru 15:00 23:00 07:00 11/12/16 17:25 - 11/14/16 06:42 Intake Total 5448 ml 6448 ml Output Total 0 ml 0 ml Balance 5448 ml 6448 ml Intake Oral 553 ml 553 ml IV Total 4895 ml 5895 ml Output Urine Total 0 ml 0 ml Exam Physical Exam: GEN: Patient was awake, alert, responding appropriately to questions HEENT: Pupils equal round and reactive to light, extraocular eye muscles intact , Neck soft supple, trachea midline, nomocephalic/atraumatic CV: +S1/S2, regular rate and rhythm, no murmurs auscultated Respiratory: CTAB, no wheezes, rales, rhonchi GI: +bowel sounds x4, soft, compressible, nontender to palpation EXT: no clubbing, cyanosis, edema of the right knee; left knee significant swelling, erythema, and ulcer-like lesions on the knee Neuro: Cranial nerves II-XII grossly intact Psych: mood and affect were appropriate IVs and Medications Medications Reviewed: Medications were reviewed in detail Lab and Diagnostics Result Diagram: 11/14/16 0539 11/14/16 0539 Assessment & Plan Patient is a 46 year old gentleman (who is a poor historian) with 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 He was admitted for suspected septic joint of his left knee with associated significant swelling and effusion, in addition to reported subjective fever and chills. Suspected septic joint of left knee, acute, present on admission. Ongoing - Blood cultures pending -Continue vancomycin and ceftriaxone - MRSA negative -ASO titer within normal limits 141 - Orthopedics following Dr. Barker - Pain: Dilaudid 1mg IV q4h prn pain - Records request from ID team, Dr. Lai, and [facility] ortho, Dr. Tristan, placed to in case transfer is delayed (patient does not want to return to this orthopedic surgeon) Anxiety, chronic. Presumed stable - Ativan 1mg IV q4h prn anxiety Heroin abuse -Start clonidine 0.2 mg 4 times a day for potential opioid withdrawal -We will continue to monitor for rigors and myalgias and treat accordingly History of incarceration. Presumed stable - HIV results negative - QFT results pending History of HCV. Unknown status - Per chart review - HCV quant + genotype Tobacco use disorder, chronic. Stable - Pt reports approx 8 cigarettes daily - 14mg nicotine patch prn - PRN: bowel/fever/antiemetic/pain/anxiety - Diet: General - DVT: Hep q8 SQ - Code: FULL CODE Disposition: The [facility] transfer center stated that there with orthopedic Center denied any transfer. Even though the patient does have a note from the [facility] on 11/12/2016 stating that his care should be transferred to the care of Dr. Diaz or Dr. Sims in conjunction with his infectious disease team. Even though the patient does have a septic joint, the [facility] still refuses to accept the patient as a transfer however they stated that they will see him as an outpatient. At this time infectious disease (Dr. Cross) has been contacted for recommendations on antibiotic coverage for this patient. We are also in the process of trying to make the patient an appointment within the next 1-2 days at the [facility] so that he will be seen immediately by an orthopedist in case we are still unable to transfer him to another facility. GI Prophylaxis: H2 erasmo VTE Prophylaxis: Sub-Q Heparin (Unfractionated) Resuscitation Status: CPR: Attempt Resuscitation Time spent Greater than 1 hour Chiqui Levy DO Nov 14, 2016 15:14
[2016-11-14] MEDS ORDERED: Vancomycin 1 Gm/200 mL NS Premix IV SCH (17:00)
--- NOTE | 2016-11-14 19:30 | NUR ---
Pain pt Pain between 6-03/08 this shift, treating with PO Percocet, IV Dilaudid, Vistaril, ice and antibiotics. Pt becomes somewhat sedated after pain medications, watching closely care continued. 2L of normal Saline given bolus this shift for low bp.
--- NOTE | 2016-11-14 19:43 | CONS ---
[address] [address] CONSULTATION REPORT PATIENT: SIOBHAN PETERSEN : 1970 MR#: [id number] ADMIT: 11/12/2016 JOB ID: [id number] DATE OF SERVICE: 11/14/[address] Chiqui Levy for this consult. REASON FOR CONSULT: Infected left knee prosthesis. HISTORY OF PRESENT ILLNESS: The patient is an incredibly complicated, 46-year-old gentleman with an obviously lifelong history of dysplastic arthritis. This rare syndrome, which is widespread in his family, results in early failure of joints and has resulted in him having six joint replacements since the age of 26. Unfortunately, he has also had a history of IV drug use and this has resulted in multiple joint infections as well as many soft tissue infections over the years. 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 This was treated with a hip prosthesis in place and apparently the patient did reasonably well but subsequently that hip had to be removed and a spacer placed and he currently has a spacer in the location of the right hip. The patient has also had a great deal of trouble with his left knee prosthesis which is the first one he got about 20 years ago. It became very infected two years ago at an outside facility in [place]. He required an excisional arthroplasty and placement of a hinged spacer. The antibiotic impregnated spacer was to have been in place for some period of weeks followed by a new knee but this was never done and the patient reports for the last couple years he has had a grossly swollen left knee which will not support his weight. More recently, it has become completely dislocated and massively swollen. Adding to this ongoing string of disasters, the patient is also homeless and lives in his van and is an ongoing cigarette smoker. The patient is currently apparently followed by Orthopedics at the [facility] and an infectious disease doctor in the [facility], whom I know, Dr. Dallin Lai. He states he last saw Dr. Lai a couple months ago and was not given any antibiotics at that time. He states that it has been the assumption that his left knee is chronically infected, but it is not entirely clear to him and he has not received any treatment for it recently. The patient was admitted to this facility on November 12 which was his first admission here in four years. He was admitted because his left knee was swollen and tender and he was experiencing fever and chills. The patient reports that he has tremendous pain in the left knee which is tremendously swollen at this point, but he says it is actually better than it was a couple weeks ago when it was even more out of control. He states that in addition to the severe pain, fever, and chills, he just generally feels weak and is exhausted by the chronic pain. He really cannot get around except by wheelchair. When evaluated in the emergency department on the prior to admission, he was found to have a normal white count, a modestly elevated procalcitonin, and an x-ray of the left knee which revealed a posterior dislocation of the articulated spacer. There was an attempt made to aspirate some fluid from the swollen tender left knee in the ER but this was unfortunately unsuccessful. Attempts to get multiple blood cultures in this reportedly ex-IV drug user were unsuccessful and only one blood culture bottle could be properly inoculated. The patient reports that in the two days since his admission, he has suffered from ongoing swelling and intractable pain in the left knee. He reports he literally cannot move around in bed much less get out of bed. He continues to have subjective fevers, chills, and mainly just to be in pain. PAST MEDICAL HISTORY: 1. Dysplastic arthritis with replacement of both shoulders, both hips, and both knees. 2. Right hip septic prosthetic joint with removal of the prosthetic joint and now with a spacer in place. 3. Infection of the left knee, 2014, with removal of the infected prosthetic knee and placement of an articulated spacer which remains there two years later. 4. History of IV drug use which he reportedly quit two months ago. 5. Hepatitis C. SOCIAL HISTORY: The patient is an ongoing cigarette smoker but not an alcohol consumer. He lives in his van and smokes about half pack a day of cigarettes. He cannot walk and gets around by wheelchair, though he has a great deal of difficulty doing any anything including getting on and off the toilet. FAMILY HISTORY: Negative for tuberculosis in any first- or second-degree family member. He reports that many relatives have the dysplastic arthritis he does and are struggling with this. REVIEW OF SYSTEMS: Was done. This evening the patient states he has an off and on headache which is a chronic problem for him. He denies any visual change, trouble swallowing, sores in the mouth or pain with swallowing. He states his neck is not stiff. He has no significant cough or shortness of breath. No chest pain. No pleuritic chest pain. No nausea, vomiting, or diarrhea. No pain with urination and no urinary frequency. He notes that all of his major joints are painful at times including those that have been replaced, those that have spacers, and those that have not yet been replaced. His shoulders are working reasonably well it sounds like, but his right hip is quite painful and not terribly mobile as he has a spacer in place there. His left knee is the main replaced joint of concern as it is dramatically swollen, warm, tender, and completely nonfunctional. The patient denies any loss of sensitivity in the feet or lower extremities below the knees. Remainder of the review of systems negative. PHYSICAL EXAMINATION: Reveals a chronically ill-appearing gentleman who looks older than 46. He is sitting up, awake alert, very pleasant in his hospital bed. His BMI is 31. Weight 35.9, pulse 80, blood pressure 95/55. He is saturating quite well on room air. The patient appears to be in some mild pain at this point. Examination of the eyes reveals no conjunctival or scleral abnormalities. No conjunctival hemorrhages are seen. The nose is normal. The oral cavity without thrush or hairy leukoplakia. Neck is supple. No JVD. Lungs reasonably clear to auscultation. A few wheezes are heard bilaterally. Cardiac tones regular rate and rhythm without any murmurs, rubs, or gallops. The abdomen is soft and nontender without hepatosplenomegaly or ascites. No suprapubic tenderness is noted, and the patient does not have a Lopez catheter. The patient has reasonable motion of his prosthetic shoulders bilaterally. Likewise his right hip and right knee seem to function fairly well in that he can flex his hip some and has a fairly good range of motion with the right knee. The left lower extremity is a different matter. The patient's left knee is swollen to probably four times normal size, though he reports it was bigger two weeks ago. It is diffusely erythematous with the point of maximal tenderness just to the medial aspect of the midportion of the joint line. There is no significant drainage from this erythematous, very tender knee, however. Around his skin diffusely, there is vitiligo which is most notable on the extremities and is longstanding. Neurologically, the patient has sensation in his feet and he can move them though obviously has trouble moving the left leg below the knee secondary to the tremendously inflamed and infected spacer that is present there. LABORATORIES: Include white count 4500, platelets 269, sed rate 52. CRP is 5. Creatinine 0.53. LFTs are normal. Procalcitonin negative x2. Vancomycin trough 25. HIV is negative. Streptozyme negative. Hep C quantitation and genotype are pending. QuantiFERON Gold is pending. Micro: The single positive blood culture done in the ED is negative. Unfortunately, only got one bottle. A MRSA screen is also done and is negative. Chest x-ray shows prominent interstitium and possible atelectasis at the left base. X-ray of the left knee shows posterior tibial dislocation along with loosening of the femoral and temporal components of the knee prosthesis. Complete patellar dislocation is also seen. IMPRESSION: This is an extraordinarily difficult case. It would appear that the patient's left knee hinged formerly antibiotic-impregnated spacer is infected. We do not have any records to prove this is the case and our attempts to aspirate the knee were apparently unsuccessful in the operating room. At this point, we are left with a very difficult situation with a gentleman who is afebrile with a basically normal white blood count and only modestly elevated sed rate and CRP, who is admitted basically for increased pain and swelling with subjective fevers and chills involving this left knee. It would certainly appear that this left knee spacer is in fact infected and antimicrobial therapy would be indicated but I doubt this will be of much success given the enormous swelling present in the left knee and the fact that there is a spacer there which long ago ran out of the impregnated antibiotics. At this point, the spacer is just serving as a giant foreign body and enhancing rather than preventing infection. I suspect the only way to achieve anything other than a temporary lessening of symptoms is to take out this prosthetic joint and place a new impregnated spacer to be followed by six or eight weeks of IV antibiotics and then possibly replace the knee prosthesis itself to increase his activity level and functionality. Whether this is possible by any surgeon here or indeed any surgeon anywhere remains unclear, given the dramatically distorted anatomy present in his left knee at this time. RECOMMENDATIONS: 1. The patient is currently receiving vancomycin and ceftriaxone. In view of his negative MRSA screen, I think it is probably reasonable to drop the vancomycin at this point, as it is more likely to produce more toxic effect than benefit. 2. We continue with the single antibiotic of ceftriaxone while we await additional data but I suspect that will do little with this antibiotic other than select resistance and what we really need here is a concerted plan to remove the spacer, place a new spacer, and then get some cultures with aggressive IV treatment to be aimed at any positive cultures for any organism found within the prosthetic implant. 3. This patient's care would be enhanced if he could be transferred to a center with more expertise doing such complex knee replacement, reconstruction, and surgeries. SABINE
--- NOTE | 2016-11-14 19:43 | NUR ---
Low blood pressure At 1500, patient experiencing low blood pressure of 95/55. Complains of dizziness Administered normal saline IV fluid bolus 1000 ml/hr once as ordered. At 1900, BP 111/55. Still complains of some dizziness.
[2016-11-15 00:26] VITALS: PULSE 75
[2016-11-15 00:50] VITALS: BP 103/52; PULSE 76; RESP 20; O2SAT 97
[2016-11-15] MEDS: oxyCODONE-Acetamin 5-325 mg Tablet PO PRN (01:11)
[2016-11-15] MEDS: HYDROmorphone 1 mg/mL Inj IVPUSH PRN ×3 (03:23→14:17)
[2016-11-15] MEDS: 0.9% Sodium Chloride 1,000 ML IV SCH ×4 (03:55→16:15)
--- NOTE | 2016-11-15 04:42 | NUR ---
PAIN Patient continues to have constant pain to Left knee. IV dilaudid, percocet, vistaril, and ativan given around the clock. Patient complains that he can't rest. After pain medication, patient is observed dozing but wakes up moaning. Patient assisted in re-positioning several times over night and instructed in relaxation and breathing techniques.
[2016-11-15] MEDS: hydrOXYzine Pamoate 25 mg Capsule PO PRN ×2 (05:23→18:35)
[2016-11-15 05:45] VITALS: BP 97/55; PULSE 96; RESP 20; O2SAT 93
[2016-11-15 07:48] LABS: Mean Corpuscular Hemoglobin 26.4 pg (27.0-35.0); Mean Corpuscular Volume 86.6 fL (81-100)
[2016-11-15] MEDS: cefTRIAXone Inj 2,000 MG in Dextrose 5% Minibag Plus 50 ML IV SCH (08:53)
[2016-11-15] MEDS: Heparin 5,000 Unit/mL Inj SUBQ SCH ×2 (08:58→16:30)
[2016-11-15 10:00] VITALS: BP 108/66; PULSE 83; RESP 20; O2SAT 94
--- NOTE | 2016-11-15 10:08 | NUR ---
Social Work-readiness for discharge: Data:EMR Reviewed. Pt is on day 3 of hospitalization for swollen knee per H&P. Pt is not medically stable anticipate later today or tomorrow. SW updated in morning rounds that pt will not be transferring to . Pt plans to return back to his van at discharge and uses a w/c at baseline. No anticipated discharge needs. SW will continue to follow if needs arise. Assessment:Pt who uses a w/c at baseline. Plan:Pt to discharge back to his van when medically stable. No anticipated discharge needs. SW will continue to follow if needs arise. EVELIA Laguna
[2016-11-15] MEDS ORDERED: AMOX-366 PO (10:48)
[2016-11-15] MEDS ORDERED: OXYC5TAB72 PO (10:48)
[2016-11-15 10:51] VITALS: PULSE 77
--- NOTE | 2016-11-15 10:54 | PCM.DIMED ---
Discharge Instructions Date of Service Nov 15, 2016 Dates of Hospitalization Nov 12, 2016 at 20:14 Discharge Diagnosis Discharge Diagnosis L knee cellulitis secondary to possible septic joint Tobacco abuse Diet No restrictions Activity Other (As tolerated) Call your provider Fever or Chills, Shortness of breath, Bleeding Patient Instructions Follow-up with PCP in: 1 week (Please follow up with the [facility] as discussed with Dr. Lai) Follow-up in: 1 week (Please follow up with Dr. Lai your infectious disease doctor. If an appointment has not been made then please call to schedule an appointment.) Chiqui Levy DO Nov 15, 2016 10:54
--- NOTE | 2016-11-15 11:04 | PCM.DC.MED ---
Discharge Summary Date of Service Nov 15, 2016 Dates of Hospitalization Date of Hospital Admission Nov 12, 2016 at 20:14 Date of Discharge: Nov 15, 2016 Providers: Admitting Physician: Krunal Hillman MD Primary Care Physician: Maddie Mancuso Attending Physician: Krunal Hillman MD Diagnosis at Time of Discharge Diagnosis at Time of Discharge L knee cellulitis secondary to possible septic joint Tobacco abuse Brief History Mr. 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 He was admitted for suspected septic joint of his left knee with associated significant swelling and effusion, in addition to reported subjective fever and chills. Hospital day one. Mr. Hanna states a complex history of multiple joint replacements of bilateral shoulders, hips, and knees due to his condition of spondyloepiphyseal dysplasia, with most recent removal of hardware of left knee and right hip secondary to complications in 2014, secondary to infection as stated by the patient. He states that he is followed by Infectious Disease department, orthopaedics in [place], and his PCP is through [facility] in [place]. He shares that his left knee has progressively become more swollen and painful over recent days to weeks, but notes that he has had ongoing difficulties for the recent 1.5 years since the removal of his hardware and spacer placement, which he states was completed at [facility] in [place]. He adamantly insists that he not return to [place] for continued orthopaedic care. He lives out of his van, smokes approx 0.5ppd, and denies daily or chronic alcohol use. Admits to IVDU, last use reported as two months prior to this admission. He also reports history of [place] in [id number]. During the initial interview, he was notably uncomfortable, and distracted by his high level of pain, and despite his pain, he was quite cooperative. He denies any other medical conditions other than his ongoing joint issues secondary to dysplasia, and vitiligo. Denies any history of cardiac, pulmonary, or GI complications. He admits to ongoing and increasingly worsening left knee pain and swelling, diffuse muscle spasms, subjective fever, and chills. Denies any nausea, vomiting , decreased appetite. Reports he is wheelchair bound at baseline secondary to the spacers that remain in his left knee and right hip, but reports that he is usually able to transition well without assistance and without significant, limiting pain. He was seen at [facility] in 2011 for MSSA bacteremia right hip pain and infection secondary to IVDU injection into the right hip, and was noted to have a history of MRSA and previous skin abscesses. He shares that his most recent severe infection was in late 2014, but reports a recent use of outpatient antibiotics that he completed a few months ago, but he is unable to recall the details of the name or class of medication. In the ED, vitals included T36.2, P99, BP 114/77, with 99% RA; initial labs revealed WBC 7.3, Hb 10.7, ESR 52, CRP 7.2, LA 1.0; blood cultures obtained x1 set, as second set was unable to be obtained. CXR suspicious for RUL PNA; Left knee XR revealed left knee arthroplasty prosthesis with posterior lateral dislocation of tibiotalar joint, femoral component of prosthesis loosened and displaced anteriorly and medially, and loosening of tibial compartment with lucency between prosthesis and bone interface, with marked soft tissue swelling and small effusion. The ED emergently contact ortho, and ortho attempted to aspirate fluid without success. Initial therapy included zosyn and vanco. 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 He was admitted for suspected septic joint of his left knee with associated significant swelling and effusion, in addition to reported subjective fever and chills. After 2 days of trying to get the patient transferred back down to the [facility] for orthopedic care this has been unsuccessful. The patient states that he really would like to have his care done at [facility] where his current infectious disease doctor is Dr. Lai and would like to continue with the follow-up plan the patient for him to transfer his care down to the [facility]. The patient states that he will follow up at the [facility] with the orthopedic clinic. Multiple attempts from our community administrator were made to try and schedule the patient an appointment however this was also met with significant resistance/difficulty even though the [facility] stated that he could follow-up in their outpatient clinic. The patient states that he understands and will contact orthopedics however if the pain is too much or if he develops a fever or chills he will go to the emergency room down at the [facility] immediately. Patient has remained afebrile and has been on antibiotics throughout the duration of his stay. Infectious disease is also seen the patient and agree with the ceftriaxone. Patient will be discharged home on Augmentin 875 mg twice a day. The patient has been given strict instructions to follow-up at the emergency room immediately should he develop a fever or has an increase in pain. See hospital course below: Suspected septic joint of left knee, acute, present on admission. Ongoing - Blood cultures pending -Continue vancomycin and ceftriaxone - MRSA negative -ASO titer within normal limits 141 - Orthopedics following Dr. Barker - Pain: Dilaudid 1mg IV q4h prn pain - Records request from ID team, Dr. Lai, and [facility] ortho, Dr. Tristan, placed to in case transfer is delayed (patient does not want to return to this orthopedic surgeon) Anxiety, chronic. Presumed stable - Ativan 1mg IV q4h prn anxiety Heroin abuse -Start clonidine 0.2 mg 4 times a day for potential opioid withdrawal -We will continue to monitor for rigors and myalgias and treat accordingly History of incarceration. Presumed stable - HIV results negative - QFT results pending History of HCV. Unknown status - Per chart review - HCV quant + genotype Tobacco use disorder, chronic. Stable - Pt reports approx 8 cigarettes daily - 14mg nicotine patch prn - PRN: bowel/fever/antiemetic/pain/anxiety - Diet: General - DVT: Hep q8 SQ - Code: FULL CODE Disposition: The [facility] transfer center stated that there with orthopedic Center denied any transfer. Even though the patient does have a note from the [facility] on 11/12/2016 stating that his care should be transferred to the care of Dr. Diaz or Dr. Sims in conjunction with his infectious disease team. Even though the patient does have a septic joint, the [facility] still refuses to accept the patient as a transfer however they stated that they will see him as an outpatient. At this time infectious disease (Dr. Cross) has been contacted for recommendations on antibiotic coverage for this patient. We are also in the process of trying to make the patient an appointment within the next 1-2 days at the [facility] so that he will be seen immediately by an orthopedist in case we are still unable to transfer him to another facility. Exam Vital Signs (Last) Date Time Temp Pulse Resp B/P Pulse Ox O2 Delivery O2 Flow Rate FiO2 11/15/16 10:51 77 11/15/16 10:00 36.7 20 108/66 94 Room Air Exam Physical Exam: GEN: Patient was awake, alert, responding appropriately to questions HEENT: Pupils equal round and reactive to light, extraocular eye muscles intact , Neck soft supple, trachea midline, nomocephalic/atraumatic CV: +S1/S2, regular rate and rhythm, no murmurs auscultated Respiratory: CTAB, no wheezes, rales, rhonchi GI: +bowel sounds x4, soft, compressible, nontender to palpation EXT: no clubbing, cyanosis, edema of the right knee, left knee positive erythema and edema with positive ulcerations. Neuro: Cranial nerves II-XII grossly intact Psych: mood and affect were appropriate Test 11/12/16 20:30 11/13/16 05:20 11/14/16 05:39 11/14/16 11:30 Erythrocyte Sedimentation Rate 52mm/hr (0-15) Lactic Acid Level 1.0mmol/L (0.4-2.0) Neutrophils (%) (Auto) 50.8% (40-74) Lymphocytes (%) (Auto) 30.4% (14-46) Monocytes (%) (Auto) 12.0% (4-12) Eosinophils (%) (Auto) 6.4% (0-5) Basophils (%) (Auto) 0.2% (0-3) Uric Acid 3.9mg/dL (2.6-7.2) Phosphorus Level 4.4mg/dL (2.5-4.9) Magnesium Level 1.8mg/dL (1.6-2.6) C-Reactive Protein 5.0mg/dL (0.0-0.5) HIV (1&2) Ag and Ab, 4th Generation Non reactive (Non Reactive) Streptozyme 141.9IU/mL (0.0-200.0) Total Bilirubin 0.2mg/dL (0.0-1.2) Aspartate Amino Transf (AST/SGOT) 8U/L (0-50) Alanine Aminotransferase (ALT/SGPT) 6U/L (0-44) Alkaline Phosphatase 81U/L (25-150) Total Protein 5.4g/dL (6.4-8.4) Albumin 2.4g/dL (3.4-5.0) Procalcitonin 0.11ng/mL (0.00-0.08) Vancomycin Level Trough 24.8mcg/mL Test 11/15/16 03:30 White Blood Count 5.5th/mm3 (3.8-10.1) Red Blood Count 3.29mil/mm3 (4.40-5.80) Hemoglobin 8.7g/dL (13.8-17.2) Hematocrit 28.5% (41.0-50.0) Mean Corpuscular Volume 86.6fL (81-100) Mean Corpuscular Hemoglobin 26.4pg (27.0-35.0) Mean Corpuscular Hemoglobin Concent 30.5% (32.0-37.0) Red Cell Distribution Width 15.9% (12.3-15.4) Platelet Count 300bil/L (150-400) Sodium Level 140mEq/L (134-144) Potassium Level 4.3mEq/L (3.5-5.2) Chloride Level 107mEq/L (97-108) Carbon Dioxide Level 20mmol/L (18-29) Blood Urea Nitrogen 9mg/dL (6-24) Creatinine 0.64mg/dL (0.76-1.27) Estimat Glomerular Filtration Rate 144mL/min (>59) Glucose Level 103mg/dL (60-99) Calcium Level 8.3mg/dL (8.5-10.1) Discharge Medications Discharge Medications Amoxicillin/Clav K 875-125 mg (Augmentin 875-125 mg) 1 Each Tablet 1 TABLET PO BID Prescribed by: CHIQUI LEVY DO As needed hydrOXYzine Hcl (HydrOXYzine Hcl) 25 Mg Tablet 25 MG PO Q6H PRN PRN For Anxiety (Reported) oxyCODONE (oxyCODONE) 5 Mg Tablet 5-10 MG PO Q4H PRN PRN For Moderate Pain Prescribed by: CHIQUI L LEVY, DO oxyCODONE-Acetaminophen 10-325 mg (oxyCODONE-Acetaminophen 10-325 mg) 1 Each Tablet 1 TABLET PO Q4H PRN PRN For Pain (Reported) Followup Plan Discharge Diet: No restrictions Discharge Activity: Other (As tolerated) Follow-up with PCP in: 1 week (Please follow up with the [facility] Orthopedics JESSIE as discussed with Dr. Lai) Follow-up in: 1 week (Please follow up with Dr. Lai your infectious disease doctor. If an appointment has not been made then please call to schedule an appointment.) Time spent Greater than 35 minutes Chiqui Levy DO Nov 15, 2016 11:04
--- NOTE | 2016-11-15 12:15 | PROG NOTE ---
[address] [address] PROGRESS NOTE PATIENT: SIOBHAN PETERSEN : 1970 MR#: [id number] ADMIT: 11/12/2016 JOB ID: [id number] DATE: 11/15/2016 INFECTIOUS DISEASE FOLLOWUP NOTE: REASON FOR FOLLOWUP: Probable infection of left knee spacer. INTERVAL HISTORY: The patient notes little change overnight. No fevers. No chills. No cough, shortness of breath, or chest pain. No GI symptoms. He has continued and ongoing severe pain in his left grossly swollen knee. I discussed the situation in great detail with Dr. Garcia of orthopedics this morning. Dr. Garcia states that the knee spacer is tremendously dislocated at this point, and the erythematous and tender area over the medial left knee is actually largely a part of the cement spacer, which is completely dislodged at this point. He is uncertain as to whether or not there is infection, though thinks it is quite possible. PHYSICAL EXAMINATION: Reveals an afebrile gentleman. Temperature 36.6, pulse 77, respiratory rate 20, blood pressure 108/66. He is saturating well on room air, and in no acute distress. Mental status is clear. Lungs are clear. Cardiac tones without change. The left knee is tremendously swollen with tender erythema over the medial aspect. There is no spontaneous drainage but there is an area of shallow skin ulceration at the peak of this erythematous, swollen area, and one wonders if the spacer is about to emerge from that area. LABORATORIES: Include a white count of 5500, platelet count 300,000. Procalcitonin 0.11. Creatinine 0.64. HIV negative. Hep C and studies pending. QuantiFERON Gold pending. The only micro we have is a single blood culture, as he was a tough draw, and that is negative. MRSA screen of the nares is negative. IMPRESSION: After my extended discussion this morning with Dr. Garcia, I am even more confused than I was yesterday. I think it is likely that his left knee spacer is infected, as it is basically just a giant foreign body having been in the knee joint area for two years. It is now grossly dislocated and that may be producing some or all of the erythema and tenderness we see. At this point, without a joint aspirate or additional data, I have no idea how to direct his antibiotics but at this point, he is certainly not septic, and there is no indication that the process in his left knee is in anyway life threatening, though it certainly threatens the viability of his left leg. RECOMMENDATIONS: 1. I think the patient should be transferred or referred to another center, and I understand the [facility] is willing to see him in clinic which would be most appropriate. 2. I think the patient could be discharged at almost any time without any antibiotics, as I really do not know what we are treating at this point. 3. The patient is to follow up both with [facility], as well as Dr. Lai who is his infectious disease doctor who knows him well. 4. I will discuss these recommendations with Dr. Levy.
--- NOTE | 2016-11-15 12:28 | NUR ---
Social Work: discharge: Data:EMR Reviewed. Pt is on day 3 of hospitalization for swollen knee per H&P. Pt is medically stable for discharge. Pt plans to return back to this van. Pt uses a w/c at baseline. No anticipated discharge needs. All updated adn agreeable to plan. Assessment:Pt who uses a w/c at baseline. Plan:Pt to discharge back to his van today via POV. No anticipated discharge needs. All updated and agreeable to plan. EVELIA Laguna
[2016-11-15] MEDS ORDERED: Vancomycin Serum Trough XX ONE (16:30)
--- NOTE | 2016-11-15 17:23 | NUR ---
Social Work Note - COMPLAINT EVALUATION SUPERVISOR was asked to help with transportation for pt to get to in [place]. Pt had surgery on his knee in [place] and at [facility] recommends that Pt follow up with his previous surgeons. Pt states that he is living in his van - states that it is at [employer]. He has tried calling family for help with transportation, his daughters are unable to help. Pt identified Cody Cartwright Sr [phone] who is a friend who will likely be willing to pick him up and will take him to [place]. COMPLAINT EVALUATION SUPERVISOR offered to call Cody, Pt refused stating that he can make arrangements. Pt has a credit card in his belonging that he could use to pay for a cab if needed. COMPLAINT EVALUATION SUPERVISOR offered support - no other needs identified. COMPLAINT EVALUATION SUPERVISOR discussed with RN, provided update. COMPLAINT EVALUATION SUPERVISOR discussed case with belt and link assembly supervisor, Liliana who states that [facility] is not able to authorize transportation to [place]. CORNELIA Ruelas
--- NOTE | 2016-11-15 20:07 | NUR ---
Discharge Pt left with friend to home in [facility] in stable condition with all belongings at 1999, pt instructed to follow up outpatient with ortho at . Instructed to go to the ER if knee gets worse before his appointment. Prescriptions given, pt pre-medicated for ride home.
== END 2016-11-15 19:50 | disposition home or self-care (01) | DRG 603 ==
LOC: SED 17:34 → OSC 20:14 → SOU 11-13 09:05 → OSC 11-13 09:10
PROVIDERS: ADMIT Hospitalist; ATTEND Hospitalist
DX: L03.116 Cellulitis of left lower limb (principal); F11.10 Opioid abuse, uncomplicated; F17.200 Nicotine dependence, unspecified, uncomplicated; Q77 Osteochondrodysplasia with defects of growth of tubular bones and spine; M17.0 Bilateral primary osteoarthritis of knee; Z96.651 Presence of right artificial knee joint; Z96.612 Presence of left artificial shoulder joint; Z96.611 Presence of right artificial shoulder joint; F41.9 Anxiety disorder, unspecified; Z99.3 Dependence on wheelchair; Z59.0 Homelessness